=== PATIENT | male | born 1950 | race Caucasian/White ===

== ENCOUNTER 2019-12-13 10:50 | Outpatient (CLI) | payer MEDICARE, OTHER, SELFPAY ==
[2019-12-13 11:24] LABS: Hemoglobin A1C 5.9 % (<5.7)
[2019-12-13 11:27] LABS: Alanine Aminotransferase 22 U/L (4-50); Albumin Level 3.9 g/dL (3.5-5.1); Alkaline Phosphatase 138 U/L (38-126); Aspartate Amino Transferase 21 U/L (17-59); Bilirubin,Total 0.3 mg/dL (0.2-1.3); Blood Urea Nitrogen 15 mg/dL (9-20); Calcium 9.4 mg/dL (8.4-10.2); Carbon Dioxide 22 mmol/L (22-30); Chloride 103 mmol/L (98-107); Cholesterol 187 mg/dL (0-200); Estimated Glomerular Filt Rate 55; Glucose 127 mg/dL (75-110); HDL Direct 35 mg/dL; Potassium 4.7 mmol/L (3.4-5.0); Sodium 140 mmol/L (137-145); Triglycerides 272 mg/dL (<150)
[2019-12-13 11:39] LABS: LDL Cholesterol Direct 96 mg/dL
[2019-12-13 12:10] LABS: Vitamin D 25 Hydroxy 60.4 ng/mL
== END 2019-12-13 10:51 | disposition home or self-care (01) ==
LOC: ANHLAB 10:56
PROVIDERS: PCP Internal Medicine; Visit Provider Nurse Practitioner
DX: N18.3 Chronic kidney disease, stage 3 (moderate) (principal); E11.42 Type 2 diabetes mellitus with diabetic polyneuropathy; E78.00 Pure hypercholesterolemia, unspecified; E55.9 Vitamin D deficiency, unspecified
CPT/HCPCS: 36415; 80053; 80061; 82306; 83036

== ENCOUNTER 2020-06-14 09:47 | Outpatient (CLI) | payer MEDICARE, OTHER, SELFPAY ==
[2020-06-14 11:02] LABS: Alanine Aminotransferase 18 U/L (4-50); Alkaline Phosphatase 104 U/L (38-126); Anion Gap 8 mmol/L (8-16); Aspartate Amino Transferase 22 U/L (17-59); Bilirubin,Total 0.2 mg/dL (0.2-1.3); Blood Urea Nitrogen 24 mg/dL (9-20); Carbon Dioxide 22 mmol/L (22-30); Chloride 108 mmol/L (98-107); Cholesterol 175 mg/dL (0-200); Estimated Glomerular Filt Rate 46; Glucose 131 mg/dL (75-110); HDL Direct 32 mg/dL; Sodium 138 mmol/L (137-145); Triglycerides 201 mg/dL (<150)
[2020-06-14 11:12] LABS: LDL Cholesterol Direct 88 mg/dL
[2020-06-14 11:16] LABS: Hemoglobin A1C 5.8 % (<5.7)
[2020-06-14 11:42] LABS: Vitamin D 25 Hydroxy 51.4 ng/mL
[2020-06-14 11:47] LABS: Prostate Specific Antigen 1.4 ng/mL (< OR = 4.0)
[2020-06-14 11:52] LABS: MALB Creatinine Ratio 54.1 mg/g (0-30); Microalbumin Urine Random 85.5 mg/L (0-16.7)
== END 2020-06-14 09:48 | disposition home or self-care (01) ==
PROVIDERS: PCP Internal Medicine; Visit Provider Internal Medicine
DX: E78.5 Hyperlipidemia, unspecified (principal); E55.9 Vitamin D deficiency, unspecified; E11.42 Type 2 diabetes mellitus with diabetic polyneuropathy; E03.9 Hypothyroidism, unspecified; I10 Essential (primary) hypertension; Z12.5 Encounter for screening for malignant neoplasm of prostate
CPT/HCPCS: 36415; 80053; 80061; 82043; 82306; 83036; 84153; 84443; G0103

== ENCOUNTER 2020-12-18 08:47 | Outpatient (CLI) | payer MEDICARE, OTHER, SELFPAY ==
[2020-12-18 09:19] LABS: Alanine Aminotransferase 12 U/L (4-50); Albumin Level 4.1 g/dL (3.5-5.1); Alkaline Phosphatase 102 U/L (38-126); Anion Gap 8 mmol/L (8-16); Aspartate Amino Transferase 20 U/L (17-59); Bilirubin,Total 0.6 mg/dL (0.2-1.3); Blood Urea Nitrogen 13 mg/dL (9-20); Calcium 8.6 mg/dL (8.4-10.2); Carbon Dioxide 25 mmol/L (22-30); Chloride 108 mmol/L (98-107); Cholesterol 177 mg/dL (0-200); Estimated Glomerular Filt Rate 50; Glucose 132 mg/dL (75-110); HDL Direct 37 mg/dL; Potassium 4.4 mmol/L (3.4-5.0); Sodium 141 mmol/L (137-145); Triglycerides 280 mg/dL (<150)
[2020-12-18 09:30] LABS: LDL Cholesterol Direct 82 mg/dL
[2020-12-18 10:20] LABS: Hemoglobin A1C 5.1 % (<5.7)
[2020-12-18 10:34] LABS: Vitamin D 25 Hydroxy 50.1 ng/mL
== END 2020-12-18 08:48 | disposition home or self-care (01) ==
PROVIDERS: PCP Internal Medicine; Visit Provider Internal Medicine
DX: E03.9 Hypothyroidism, unspecified (principal); E11.42 Type 2 diabetes mellitus with diabetic polyneuropathy; I10 Essential (primary) hypertension; E55.9 Vitamin D deficiency, unspecified; E78.5 Hyperlipidemia, unspecified
CPT/HCPCS: 36415; 80053; 80061; 82306; 83036; 84443

== ENCOUNTER 2021-07-02 07:55 | Outpatient (CLI) | payer MEDICARE, OTHER, SELFPAY ==
[2021-07-02 08:48] LABS: Alanine Aminotransferase 13 U/L (4-50); Albumin Level 3.8 g/dL (3.5-5.1); Alkaline Phosphatase 97 U/L (38-126); Anion Gap 10 mmol/L (8-16); Aspartate Amino Transferase 20 U/L (17-59); Bilirubin,Total 0.5 mg/dL (0.2-1.3); Blood Urea Nitrogen 15 mg/dL (9-20); Calcium 8.8 mg/dL (8.4-10.2); Carbon Dioxide 20 mmol/L (22-30); Chloride 109 mmol/L (98-107); Cholesterol 167 mg/dL (0-200); Estimated Glomerular Filt Rate 55; Glucose 112 mg/dL (65-110); HDL Direct 33 mg/dL; Sodium 139 mmol/L (137-145); Triglycerides 260 mg/dL (<150)
[2021-07-02 09:00] LABS: Hemoglobin A1C 5.2 % (<5.7)
[2021-07-02 09:20] LABS: Prostate Specific Antigen 1.4 ng/mL (< OR = 4.0)
[2021-07-02 12:51] LABS: Vitamin D 25 Hydroxy 54.6 ng/mL
[2021-07-02 22:04] LABS: LDL Cholesterol Direct 72 mg/dL
== END 2021-07-02 07:56 | disposition home or self-care (01) ==
PROVIDERS: PCP Internal Medicine; Visit Provider Nurse Practitioner
DX: E55.9 Vitamin D deficiency, unspecified (principal); E78.00 Pure hypercholesterolemia, unspecified; E11.42 Type 2 diabetes mellitus with diabetic polyneuropathy; N40.1 Benign prostatic hyperplasia with lower urinary tract symptoms; E03.9 Hypothyroidism, unspecified
CPT/HCPCS: 36415; 80053; 80061; 82306; 83036; 84153; 84443

== ENCOUNTER 2022-01-01 08:22 | Outpatient (CLI) | payer MEDICARE, OTHER, SELFPAY ==
[2022-01-01 10:20] LABS: Hemoglobin A1C 4.9 % (<5.7)
== END 2022-01-01 08:23 | disposition home or self-care (01) ==
LOC: ANHLAB 08:26
PROVIDERS: PCP Internal Medicine; Visit Provider Internal Medicine
DX: E11.42 Type 2 diabetes mellitus with diabetic polyneuropathy (principal); I10 Essential (primary) hypertension; E11.29 Type 2 diabetes mellitus with other diabetic kidney complication; E03.9 Hypothyroidism, unspecified
CPT/HCPCS: 36415; 83036

== ENCOUNTER 2022-01-02 08:20 | Outpatient (CLI) | payer MEDICARE, OTHER, SELFPAY ==
[2022-01-02 09:10] LABS: Creatinine Urine 91.2 mg/dL
[2022-01-02 09:13] LABS: Alanine Aminotransferase 9 U/L (4-50); Albumin Level 3.9 g/dL (3.5-5.1); Alkaline Phosphatase 86 U/L (38-126); Anion Gap 8 mmol/L (8-16); Aspartate Amino Transferase 19 U/L (17-59); Bilirubin,Total 0.4 mg/dL (0.2-1.3); Blood Urea Nitrogen 18 mg/dL (9-20); Calcium 8.4 mg/dL (8.4-10.2); Carbon Dioxide 18 mmol/L (22-30); Chloride 114 mmol/L (98-107); Cholesterol 146 mg/dL (0-200); Estimated Glomerular Filt Rate 46; Glucose 96 mg/dL (65-110); HDL Direct 32 mg/dL; Sodium 140 mmol/L (137-145); Triglycerides 221 mg/dL (<150)
[2022-01-02 09:14] LABS: MALB Creatinine Ratio 102.3 mg/g (0-30); Microalbumin Urine Random 93.3 mg/L (0-16.7)
[2022-01-02 09:24] LABS: LDL Cholesterol Direct 65 mg/dL
== END 2022-01-02 08:21 | disposition home or self-care (01) ==
LOC: ANHLAB 08:33
PROVIDERS: PCP Internal Medicine; Visit Provider Internal Medicine
DX: E11.42 Type 2 diabetes mellitus with diabetic polyneuropathy (principal); I10 Essential (primary) hypertension
CPT/HCPCS: 36415; 80053; 80061; 82043; 84443

== ENCOUNTER 2022-07-08 08:36 | Outpatient (CLI) | payer MEDICARE, OTHER, SELFPAY ==
--- NOTE | ~2022-07-08 | XR_ITS ---
EXAMINATION: XR chest 2V DATE: 07/08/2022 09:40 INDICATION: Shortness of breath TECHNIQUE: Frontal and lateral views of the chest are obtained COMPARISON: 06/13/2016 FINDINGS: The lungs are hyperinflated but free of acute opacities. No pleural effusion or pneumothora x. The cardiomediastinal silhouette is normal. There is mild thoracic spondylosis. An endovascular st ent is noted in the upper abdomen. IMPRESSION: 1. No acute cardiopulmonary abnormality. Reviewed, dictated and finalized at location B.
[2022-07-08 09:53] LABS: Alanine Aminotransferase 22 U/L (6-50); Albumin Level 3.9 g/dL (3.5-5.1); Alkaline Phosphatase 107 U/L (38-126); Anion Gap 8 mmol/L (8-16); Aspartate Amino Transferase 23 U/L (17-59); Bilirubin,Total 0.6 mg/dL (0.2-1.3); Blood Urea Nitrogen 17 mg/dL (9-20); Calcium 8.6 mg/dL (8.4-10.2); Carbon Dioxide 24 mmol/L (22-30); Chloride 107 mmol/L (98-107); Cholesterol 182 mg/dL (0-200); Estimated Glomerular Filt Rate 50; Glucose 99 mg/dL (65-110); HDL Direct 39 mg/dL; Potassium 4.9 mmol/L (3.4-5.0); Sodium 139 mmol/L (137-145); Triglycerides 137 mg/dL (<150)
[2022-07-08 10:03] LABS: LDL Cholesterol Direct 91 mg/dL
[2022-07-08 10:21] LABS: Vitamin D 25 Hydroxy 54.5 ng/mL
[2022-07-08 10:40] LABS: Prostate Specific Antigen 2.7 ng/mL (< OR = 4.0)
== END 2022-07-08 08:37 | disposition home or self-care (01) ==
PROVIDERS: Nurse Practitioner; PCP Internal Medicine; Visit Provider Nurse Practitioner Family
DX: E03.9 Hypothyroidism, unspecified (principal); E55.9 Vitamin D deficiency, unspecified; E11.42 Type 2 diabetes mellitus with diabetic polyneuropathy; N18.30 Chronic kidney disease, stage 3 unspecified; N40.1 Benign prostatic hyperplasia with lower urinary tract symptoms; E78.00 Pure hypercholesterolemia, unspecified; R06.02 Shortness of breath
CPT/HCPCS: 36415; 71046; 80053; 80061; 82306; 83036; 84153; 84443

== ENCOUNTER 2022-10-03 09:50 | Outpatient (CLI) | payer MEDICARE, OTHER, SELFPAY ==
[2022-10-03 12:04] LABS: Rapid Plasma Reagin Non-Reactive (NonReactive)
[2022-10-08 11:04] LABS: HSV 1 IgM Screen Negative (Negative); HSV 2 IgM Screen Negative (Negative)
== END 2022-10-03 09:51 | disposition home or self-care (01) ==
PROVIDERS: PCP Internal Medicine; Visit Provider Internal Medicine
DX: Z20.2 Contact with and (suspected) exposure to infections with a predominantly sexual mode of transmission (principal)
CPT/HCPCS: 36415; 86592; 86695; 86696

== ENCOUNTER 2023-01-14 12:22 | Outpatient (CLI) | payer MEDICARE, OTHER, SELFPAY ==
[2023-01-14 13:32] LABS: Alanine Aminotransferase 17 U/L (6-50); Albumin Level 4.1 g/dL (3.5-5.1); Alkaline Phosphatase 115 U/L (38-126); Anion Gap 8 mmol/L (8-16); Aspartate Amino Transferase 21 U/L (17-59); Bilirubin,Total 0.6 mg/dL (0.2-1.3); Blood Urea Nitrogen 30 mg/dL (9-20); Calcium 8.5 mg/dL (8.4-10.2); Carbon Dioxide 22 mmol/L (22-30); Chloride 109 mmol/L (98-107); Cholesterol 165 mg/dL (0-200); Estimated Glomerular Filt Rate 50; Glucose 97 mg/dL (65-110); HDL Direct 43 mg/dL; Potassium 5.4 mmol/L (3.4-5.0); Sodium 139 mmol/L (137-145); Triglycerides 84 mg/dL (<150)
[2023-01-14 13:43] LABS: LDL Cholesterol Direct 83 mg/dL
[2023-01-14 14:13] LABS: HIV 1/2 Ab P24 Ag Result Negative (Negative)
[2023-01-14 15:05] LABS: Hemoglobin A1C 5.4 % (<5.7)
== END 2023-01-14 12:23 | disposition home or self-care (01) ==
PROVIDERS: Internal Medicine; Nurse Practitioner; PCP Internal Medicine; Visit Provider Internal Medicine
DX: E78.5 Hyperlipidemia, unspecified (principal); E03.9 Hypothyroidism, unspecified; E11.9 Type 2 diabetes mellitus without complications; Z20.6 Contact with and (suspected) exposure to human immunodeficiency virus [HIV]
CPT/HCPCS: 36415; 80053; 80061; 83036; 84443; 86703; G0432

== ENCOUNTER 2023-02-05 12:06 | Outpatient (CLI) | payer MEDICARE, OTHER, SELFPAY ==
[2023-02-05 12:45] LABS: Anion Gap 9 mmol/L (8-16); Blood Urea Nitrogen 25 mg/dL (9-20); Calcium 8.3 mg/dL (8.4-10.2); Carbon Dioxide 21 mmol/L (22-30); Chloride 108 mmol/L (98-107); Estimated Glomerular Filt Rate 50; Glucose 92 mg/dL (65-110); Potassium 5.7 mmol/L (3.4-5.0); Sodium 138 mmol/L (137-145)
== END 2023-02-05 12:07 | disposition home or self-care (01) ==
LOC: ANHLAB 12:08
PROVIDERS: PCP Internal Medicine; Visit Provider Nurse Practitioner
DX: E87.5 Hyperkalemia (principal)
CPT/HCPCS: 36415; 80048